=== PATIENT | male | born 1945 | race Caucasian/White ===

== ENCOUNTER 2019-10-30 09:10 | Outpatient (CLI) | payer OTHER ==
[2019-10-30] MEDS ORDERED: GADOTERATE 10 MMOL/20 ML SYR ONE (09:51)
== END 2019-10-30 23:59 | disposition home or self-care (01) ==
LOC: CFH 09:10
PROVIDERS: ATTEND Radiology Radiation Oncology
DX: C79.31 Secondary malignant neoplasm of brain (principal); G31.9 Degenerative disease of nervous system, unspecified
CPT/HCPCS: 70553; A9575

== ENCOUNTER → 2019-10-31 | Outpatient (CLI) | payer OTHER | END | disposition home or self-care (01) | LOC: ROC 07:45 | PROVIDERS: ATTEND Radiology Radiation Oncology | DX: C79.31 Secondary malignant neoplasm of brain (principal) | CPT/HCPCS: 99213; G0463 ==

== ENCOUNTER → 2020-01-01 | Outpatient (CLI) | payer OTHER ==
[~2020-01-01] MED LIST: GADOTERATE 10 MMOL/20 ML SYR ONE
== END | disposition home or self-care (01) ==
LOC: CFH 09:42
PROVIDERS: ATTEND Radiology Radiation Oncology
DX: C79.31 Secondary malignant neoplasm of brain (principal); C80.1 Malignant (primary) neoplasm, unspecified; G93.89 Other specified disorders of brain; G31.9 Degenerative disease of nervous system, unspecified; I67.82 Cerebral ischemia
CPT/HCPCS: 70553; A9575

== ENCOUNTER 2020-01-09 11:30 | Outpatient (CLI) | payer OTHER ==
[2020-01-09] MEDS ORDERED: GADOTERATE 10 MMOL/20 ML VIAL ONE (12:48)
== END 2020-01-09 23:59 | disposition home or self-care (01) ==
LOC: CFH 11:30
PROVIDERS: ATTEND Radiology Radiation Oncology
DX: C79.31 Secondary malignant neoplasm of brain (principal); I63.81 Other cerebral infarction due to occlusion or stenosis of small artery; J34.89 Other specified disorders of nose and nasal sinuses; G31.9 Degenerative disease of nervous system, unspecified; G93.9 Disorder of brain, unspecified; H33.301 Unspecified retinal break, right eye
CPT/HCPCS: 70553; A9575